=== PATIENT | female | born 1975 | race Caucasian/White ===

== ENCOUNTER 2020-07-12 07:03 | Emergency (ER) | payer OTHER, SELFPAY ==
[2020-07-12 07:12] VITALS: BP 184/103; PULSE 99; RESP 20; TEMP 36.8; O2SAT 98; BMI 48.7
[2020-07-12 07:20] VITALS: BP 148/82; PULSE 82; RESP 16; O2SAT 98
--- NOTE | 2020-07-12 07:21 | ED.EXTPRO ---
HPI - Extremity Problem General Chief complaint: Extremity Problem,Nontraumatic Stated complaint: left leg vein bleeding Time Seen by Provider: 07/12/20 07:10 Source: patient Mode of arrival: Ambulatory Limitations: no limitations History of Present Illness HPI Narrative: Patient here for small bleed to varicose veins left distal anterior leg. Bleeding control at this time. Patient was in the shower. Picked at a scab and it blood. Pressure applied. Now has resolved. Patient is not not on any blood thinners. No history of liver disease. No history anemia. No problems with bleeding in the past. No recent illness. No fever chills cough cold congestion. No injury to the leg. Related Data Home Medications Medication Instructions Recorded Confirmed thyroid (pork) 32.5 mg tablet 32.5 mg PO DAILY 09/10/19 09/10/19 Allergies Allergy/AdvReac Type Severity Reaction Status Date / Time No Known Drug Allergies Allergy Verified 07/12/20 07:12 Review of Systems Review of Systems Narrative: GENERAL: Denies chills, fatigue, malaise, fever, sweats. HEENT: Denies sinus pain, ear pain, sore throat RESPIRATORY: Denies dyspnea, cough CARDIOVASCULAR: Denies chest pain, palpitations GASTROINTESTINAL: Denies nausea, vomiting, abdominal pain : Denies dysuria, frequency, hematuria MUSCULOSKELETAL: denies muscle or bony pain SKIN: Denies rash, skin lesions, complains of skin injury NEUROLOGIC: Denies weakness, numbness ROS Unobtainable: All systems reviewed & are unremarkable except as noted in HPI and below Patient History Family History Family/Other Loud snoring Sleep apnea Obesity Hypertension Depression Dementia Father Obesity Hypertension Depression Mother Loud snoring Sleep apnea Obesity Hypertension Depression Dementia Social History Smoking Status: Never smoker Smoking Status: Never smoker alcohol intake frequency: other Substance Use Type: does not use Exam Narrative Exam Narrative: GENERAL: in no distress, not toxic not dyspneic HEAD: Normocephalic. NECK: Trachea midline. CARDIOVASCULAR: Regular rate and rhythm without murmurs RESPIRATORY: Clear to auscultation. Breath sounds equal bilaterally. No wheezes, rales, or rhonchi. EXTREMITIES: No gross deformities. Examination left lower extremity. At distal anterior leg. Small very small varicose vein. Small scab overlying this vein. No active bleeding. Calf is warm soft and pink. Foot warm soft pink. Strong pedal pulse. Brisk cap refills. Light touch intact to foot and toes. NEURO: AOx4. SKIN: Warm and dry PSYCH: Not anxious, is cooperative Initial Vital Signs Initial Vital Signs: Vital Signs Temperature 98.2 F 07/12/20 07:12 Pulse Rate 99 H 07/12/20 07:12 Respiratory Rate 20 07/12/20 07:12 Blood Pressure 184/103 H 07/12/20 07:12 Pulse Oximetry 98 07/12/20 07:12 Course Course Course Narrative: No new issues during course of stay. Reevaluation(s) Reevaluation #1: Reviewed care plan with patient. Agrees with treatment plan and follow-up with family doctor. Agrees no blood work at this time. Low risk factors for coagulopathy. Vital Signs Vital signs: Vital Signs - 8 hr 07/12/20 07:12 07/12/20 07:20 Temperature 98.2 F Pulse Rate 99 H 82 Respiratory Rate 20 16 Blood Pressure 184/103 H 148/82 H Pulse Oximetry 98 98 MDM - Extremity (Nontraumatic) Differential Diagnosis Differential diagnosis: Likely other (Varicose vein) MDM Narrative Medical decision making narrative: Appropriate for discharge home. Exam reassuring. Low risk factors for any coagulopathy. No liver disease. Not on any anticoagulation. Bleeding controlled. Reviewed instructions at home to apply pressure if rebleeds and return precautions if not resolved. Discharge Plan Departure Patient Disposition: Home Clinical Impression: Bleeding from varicose vein Instructions: DI for Varicose Veins Activity Restrictions/Additional Instructions: Return if worse or if any questions or concerns. See family doctor in a week for recheck. If rebleeding occurs, applied direct pressure to the vein. If not resolved or stop bleeding in 10 minutes then returned to the emergency department. Prescriptions: No Action Nature-Throid 32.5 mg tablet 32.5 mg PO DAILY RF: 0
--- NOTE | 2020-07-12 07:25 | PC.NURSE ---
placed 2x4 gauze and loose ko-band around wound and educated pt on how to check cap refill.
== END 2020-07-12 07:27 | disposition home or self-care (01) ==
PROVIDERS: Emergency Provider Emergency Medicine
DX: I83.899 Varicose veins of unspecified lower extremity with other complications (principal)
CPT/HCPCS: 99281

== ENCOUNTER → 2021-06-12 14:16 | Outpatient (CLI) | payer OTHER, SELFPAY ==
--- NOTE | 2021-06-12 | DI.MG.S_ITS ---
BILATERAL DIGITAL SCREENING MAMMOGRAM 3D/2D WITH CAD: 06/12/2021 Comparison is made to exams dated: 04/21/2017 mammogram, 05/21/2016 mammogram, 04/23/2014 mammogram, and 05/21/2015 mammogram - outside location. There are scattered fibroglandular elements in both breasts. Current study was also evaluated with a Computer Aided Detection (CAD) system. No significant masses, calcifications, or other findings are seen in either breast. There has been no significant interval change. IMPRESSION: NEGATIVE There is no mammographic evidence of malignancy. A 1 year screening mammogram is recommended. This exam was interpreted at Station ID: [id number]. NOTE: For mammograms, a report in lay terms will be sent to the patient. Approximately 15% of breast malignancies will not be visualized mammographically. In the management of a palpable breast mass, a negative mammogram must not discourage biopsy of a clinically suspicious lesion. Electronically Signed By: Hailey franks/evelyn:06/12/2021 16:15:27 letter sent: Normal Exam ACR BI-RADS Category 1: Negative 3341F
== END ==
PROVIDERS: PCP Physician Assistant; Referring Provider Physician Assistant; Visit Provider Physician Assistant
DX: Z12.31 Encounter for screening mammogram for malignant neoplasm of breast (principal)
CPT/HCPCS: 77063; 77067

== ENCOUNTER → 2021-12-12 08:08 | Outpatient (CLI) | payer OTHER, SELFPAY ==
[2021-12-12 08:59] LABS: Add Manual Diff / Slide Review NO; Basophils Absolute Auto 100 /uL (0-100); Basophils Percent Auto 2.6 % (0-2); Eosinophils Absolute Auto 100 /uL (0-450); Eosinophils Percent Auto 2.1 % (2-4); Hematocrit 38.5 % (36-46); Hemoglobin 13.2 g/dL (12.0-16.0); Lymphocytes Absolute Auto 1100 /uL (1100-4500); Lymphocytes Percent Auto 28.6 % (25-40); Mean Corpuscular HGB Conc 34.3 % (30-36); Mean Corpuscular Hemoglobin 31.4 PG (26-34); Mean Corpuscular Volume 91.6 fL (80-100); Monocytes Absolute Auto 300 /uL (0-900); Monocytes Percent Auto 7.8 % (3-14); Neutrophils Absolute Auto 2200 /uL (1500-7000); Neutrophils Percent Auto 58.9 % (50-75); Platelet Count 190 X10^3/uL (150-400); Red Cell Distribution Width 13.6 % (11.6-14.8); White Blood Cell Count 3.7 X10^3/uL (4.5-11.0)
[2021-12-12 14:05] LABS: Alanine Aminotransferase 24 IU/L (<35); Albumin 4.2 g/dL (3.5-5.0); Albumin Globulin Ratio 1.4 (1.0-2.8); Alkaline Phosphatase 62 U/L (38-126); Aspartate Aminotransferase 20 IU/L (14-36); BUN Creatinine Ratio 27.1 (6-22); Bilirubin Total 0.8 mg/dL (0.2-1.3); Blood Urea Nitrogen 19 mg/dL (7-17); Calcium 9.7 mg/dL (8.4-10.2); Carbon Dioxide 30 mmol/L (22-32); Chloride 103 mmol/L (98-107); Cholesterol 139 mg/dL (140-199); Estimated Glomerular Filt Rate > 60 mL/min (>60); Globulin 2.9 g/dL (1.7-4.1); Glucose 90 mg/dL (70-100); HDL Cholesterol 39 mg/dL (40-60); HEMOLYSIS < 15 (0-50); LDL Cholesterol Calculated 91 mg/dL (<100); Potassium 4.3 mmol/L (3.4-5.1); Sodium 141 mmol/L (137-145); Total Protein 7.1 g/dL (6.3-8.2); Triglycerides 43 mg/dL (35-150)
[2021-12-12 14:16] LABS: Free T3, Triiodothyronine Free 4.27 pg/mL (2.77-5.27); Free T4, Direct Thyroxine 1.23 ng/dL (0.78-2.19)
[2021-12-12 14:30] LABS: Thyroid Stimulating Hormone 0.885 uIU/mL (0.47-4.68)
[2021-12-12 14:31] LABS: Ferritin 77 ng/mL (6-137)
[2021-12-12 17:39] LABS: Vitamin D 25 Hydroxy (D3) 95.7 ng/mL (30.0-100.0)
[2021-12-12 18:26] LABS: Follicle Stimulating Hormone 31.2 mIU/mL
[2021-12-12 18:42] LABS: Estradiol, Total 28.4 pg/mL
== END ==
PROVIDERS: PCP Physician Assistant; Referring Provider Naturopath; Visit Provider Naturopath
DX: Z00.00 Encounter for general adult medical examination without abnormal findings (principal); E03.9 Hypothyroidism, unspecified; N92.6 Irregular menstruation, unspecified; R53.83 Other fatigue
CPT/HCPCS: 36415; 80053; 80061; 82306; 82670; 82728; 83001; 84439; 84443; 84481; 85025

== ENCOUNTER → 2022-04-19 11:00 | Outpatient (CLI) | payer OTHER, SELFPAY ==
[2022-04-19 12:10] LABS: Add Manual Diff / Slide Review NO; Basophils Absolute Auto 100 /uL (0-100); Basophils Percent Auto 1.5 % (0-2); Eosinophils Absolute Auto 100 /uL (0-450); Eosinophils Percent Auto 2.1 % (2-4); Hematocrit 37.7 % (36-46); Lymphocytes Absolute Auto 1300 /uL (1100-4500); Lymphocytes Percent Auto 30.2 % (25-40); Mean Corpuscular HGB Conc 34.3 % (30-36); Mean Corpuscular Hemoglobin 30.8 PG (26-34); Mean Corpuscular Volume 89.8 fL (80-100); Monocytes Absolute Auto 400 /uL (0-900); Monocytes Percent Auto 8.8 % (3-14); Neutrophils Absolute Auto 2500 /uL (1500-7000); Neutrophils Percent Auto 57.4 % (50-75); Platelet Count 189 X10^3/uL (150-400); Red Cell Distribution Width 13.9 % (11.6-14.8); White Blood Cell Count 4.4 X10^3/uL (4.5-11.0)
[2022-04-19 12:30] LABS: Alanine Aminotransferase 24 IU/L (<35); Albumin 4.3 g/dL (3.5-5.0); Albumin Globulin Ratio 1.3 (1.0-2.8); Alkaline Phosphatase 62 U/L (38-126); Aspartate Aminotransferase 25 IU/L (14-36); BUN Creatinine Ratio 31.7 (6-22); Bilirubin Total 0.6 mg/dL (0.2-1.3); Blood Urea Nitrogen 19 mg/dL (7-17); Calcium 9.7 mg/dL (8.4-10.2); Carbon Dioxide 30 mmol/L (22-32); Chloride 102 mmol/L (98-107); Estimated Glomerular Filt Rate > 60 mL/min (>60); Globulin 3.3 g/dL (1.7-4.1); Glucose 87 mg/dL (70-100); HEMOLYSIS < 15 (0-50); Potassium 3.8 mmol/L (3.4-5.1); Sodium 139 mmol/L (137-145); Total Protein 7.6 g/dL (6.3-8.2)
[2022-04-19 13:00] LABS: Estradiol, Total 56.7 pg/mL
[2022-04-19 15:49] LABS: Follicle Stimulating Hormone 28.7 mIU/mL
== END ==
PROVIDERS: PCP Naturopath; Referring Provider Naturopath; Visit Provider Naturopath
DX: N95.9 Unspecified menopausal and perimenopausal disorder (principal); R53.83 Other fatigue
CPT/HCPCS: 36415; 80053; 82670; 83001; 85025

== ENCOUNTER → 2022-06-21 13:16 | Outpatient (CLI) | payer OTHER, SELFPAY ==
--- NOTE | 2022-06-21 | DI.MG.S_ITS ---
BILATERAL DIGITAL SCREENING MAMMOGRAM 3D/2D WITH CAD: 06/21/2022 CLINICAL: Routine screening. Comparison is made to exams dated: 06/12/2021 mammogram - [facility], 04/21/2017 mammogram, and 05/21/2016 mammogram - outside location. There are scattered areas of fibroglandular density in both breasts (category b / 25%-50% glandular tissue). Current study was also evaluated with a Computer Aided Detection (CAD) system. There are grouped fine calcifications in the left breast at 12 o'clock middle depth. These are increased in number. No other significant masses, calcifications, or other findings are seen in either breast. IMPRESSION: INCOMPLETE: NEEDS ADDITIONAL IMAGING EVALUATION The grouped fine calcifications in the left breast are indeterminate. Additional views are recommended. Based on the Tyrer Cuzick model (a risk assessment model) the patient's lifetime risk is 11.6% and her 10 year risk is 2.6%. According to the ACR, ACS, and NCCN guidelines, an annual breast MRI exam along with mammogram is recommended if the patient's lifetime risk is 20% or greater. This exam was interpreted at Station ID: [id number]. NOTE: For mammograms, a report in lay terms will be sent to the patient. Approximately 15% of breast malignancies will not be visualized mammographically. In the management of a palpable breast mass, a negative mammogram must not discourage biopsy of a clinically suspicious lesion. Electronically Signed By: Ilia Bess M.D. [facility] [place]/:06/21/2022 17:13:41 letter sent: Additional Imaging Needed ACR BI-RADS Category 0: Incomplete 3340F
== END ==
PROVIDERS: PCP Naturopath; Referring Provider Naturopath; Visit Provider Naturopath
DX: Z12.31 Encounter for screening mammogram for malignant neoplasm of breast (principal)
CPT/HCPCS: 77063; 77067

== ENCOUNTER → 2022-07-05 10:17 | Outpatient (CLI) | payer OTHER, SELFPAY ==
--- NOTE | 2022-07-05 | DI.MG.S_ITS ---
UNILATERAL LEFT DIGITAL DIAGNOSTIC MAMMOGRAM 3D/2D WITH ADDITIONAL VIEWS: 07/05/2022 CLINICAL: Additional evaluation requested from prior study. Comparison is made to exams dated: 06/21/2022 mammogram, 06/12/2021 mammogram - [facility], and 04/21/2017 mammogram - outside location. There are scattered areas of fibroglandular density in the left breast (category b / 25%-50% glandular tissue). There are grouped fine calcifications in the left breast at 12 o'clock posterior depth. These are new when compared wuth prior studies. No other significant masses or calcifications are seen in the breast. IMPRESSION: SUSPICIOUS OF MALIGNANCY The grouped fine calcifications in the left breast are at a low suspicion for malignancy. A stereotactic biopsy is recommended. Based on the Tyrer Cuzick model (a risk assessment model) the patient's lifetime risk is 11.6% and her 10 year risk is 2.6%. According to the ACR, ACS, and NCCN guidelines, an annual breast MRI exam along with mammogram is recommended if the patient's lifetime risk is 20% or greater. This exam was interpreted at Station ID: [id number]. NOTE: For mammograms, a report in lay terms will be sent to the patient. Approximately 15% of breast malignancies will not be visualized mammographically. In the management of a palpable breast mass, a negative mammogram must not discourage biopsy of a clinically suspicious lesion. SUMMARY: This was discussed with the patient by the radiologist at the time of the exam. Electronically Signed By: Hailey Baker M.D. lk/:07/05/2022 11:02:43 letter sent: Biopsy Required ACR BI-RADS Category 4a: Suspicious abnormality - low suspicion for malignancy 3344F
== END ==
PROVIDERS: PCP Naturopath; Referring Provider Naturopath; Visit Provider Naturopath
DX: N63.20 Unspecified lump in the left breast, unspecified quadrant (principal)
CPT/HCPCS: 77065; G0279

== ENCOUNTER → 2022-07-22 11:44 | Day surgery (SDC) | payer OTHER, SELFPAY ==
[2022-07-22 12:17] VITALS: BP 140/80; PULSE 65; RESP 17; TEMP 36.4; O2SAT 100; BMI 27.6
--- NOTE | 2022-07-22 12:25 | P.HP_ITS ---
History of Present Illness History of Present Illness Date Patient Seen: 07/22/22 Time Patient Seen: 12:25 Chief complaint: Screening Colonoscopy Narrative: Lani is a 47-year-old woman who is here for a screening colonoscopy. She has never had one before. No family history of colon cancer. She is in good health. PFSH Family History Family/Other Loud snoring Sleep apnea Obesity Hypertension Depression Dementia Father Obesity Hypertension Depression Mother Loud snoring Sleep apnea Obesity Hypertension Depression Dementia Social History Smoking Status: Never smoker Meds Home Medications and Allergies Home Medications Medication Instructions Recorded Confirmed Type Fish Oil 2 tab PO DAILY 07/22/22 07/22/22 History Multi-Vitamin 1 tab PO DAILY 07/22/22 07/22/22 History Probiotic 1 tab PO DAILY 07/22/22 07/22/22 History Vitamin C 500 mg PO DAILY 07/22/22 07/22/22 History Vitamin D3 4,000 PO DAILY 07/22/22 History calcium citrate 150 mg PO DAILY 07/22/22 07/22/22 History digestive enzymes 3 tab PO DAILY 07/22/22 07/22/22 History iron bis glyc,ps complex-vit C 75 mg PO PRN PRN prn 07/22/22 07/22/22 History magnesium 650 mg PO DAILY 07/22/22 07/22/22 History thyroid (pork) 30 mg tablet 30 mg PO DAILY 07/22/22 07/22/22 History ([place] Thyroid) vitamin B complex 1 tab PO DAILY 07/22/22 07/22/22 History Allergies Allergy/AdvReac Type Severity Reaction Status Date / Time No Known Drug Allergies Allergy Verified 07/22/22 11:56 Exam Const General: healthy appearing Resp Effort & Inspection: normal respiratory effort Assessment & Plan Assessment and plan (1) Colon cancer screening: Status: Acute Plan We reviewed the risks and benefits of colonoscopy and she would like to proceed.
[2022-07-22] MEDS: LACTATED RINGERS 1,000 ML 120 ML IV (12:29)
[2022-07-22 13:00] VITALS: BP 115/73; PULSE 72; RESP 17; TEMP 36.6; O2SAT 98
--- NOTE | 2022-07-22 13:03 | P.OP.COLON_ITS ---
Operative Date/Time/Diagnoses Date of procedure: 07/22/22 Time of procedure: 13:03 Pre-op diagnosis: Colon cancer screening Post-op diagnosis: same Procedure & Clinicians Study performed: Colonoscopy Same procedure as scheduled: Yes Surgeon: Ovidio Hargrove Procedure Notes Procedure in detail: Surgeon: Ovidio Hargrove MD Anesthesia: Pam Cameron AUTOMATION ARCHITECT Procedure: The patient was brought to the endoscopy suite, placed in left lateral decubitus position. The patient was connected to monitoring devices. A time-out was performed. Sedation was administered. Once the patient was adequately sedated, a digital rectal exam was performed and was normal. The scope was then inserted and advanced to the cecum where the appendiceal orifice was identified and photographed. The scope was then slowly withdrawn over greater than 6 minutes. The mucosa was thoroughly inspected. No abnormalities were found throughout the colon. The scope was retroflexed in the rectum. No abnormalities were seen in the rectum. The scope was straightened and removed. The patient was awakened and brought to recovery. Scope withdrawal time: 9 minutes Sedation time: 16 minutes EBL: 0 Findings: Normal colon Post-procedure Recommendations: Colonoscopy in 10 years Disposition: PACU
[2022-07-22 13:06] VITALS: BP 114/70; PULSE 70; RESP 18; O2SAT 97
== END | disposition home or self-care (01) ==
PROVIDERS: PCP Naturopath; Referring Provider Surgery; Visit Provider Surgery
PROC: 0DJD8ZZ Inspection of Lower Intestinal Tract, Via Natural or Artificial Opening Endoscopic (ICD-10-PCS; CPT 45378; principal; 2022-07-22 12:45)
DX: Z12.11 Encounter for screening for malignant neoplasm of colon (principal)
CPT/HCPCS: 45378

== ENCOUNTER → 2022-10-13 07:42 | Outpatient (CLI) | payer OTHER, SELFPAY ==
[2022-10-13 09:04] LABS: Add Manual Diff / Slide Review NO; Basophils Absolute Auto 100 /uL (0-100); Basophils Percent Auto 1.9 % (0-2); Eosinophils Absolute Auto 100 /uL (0-450); Eosinophils Percent Auto 4.4 % (2-4); Hemoglobin 12.4 g/dL (12.0-16.0); Lymphocytes Absolute Auto 1100 /uL (1100-4500); Lymphocytes Percent Auto 34.3 % (25-40); Mean Corpuscular HGB Conc 34.4 % (30-36); Mean Corpuscular Hemoglobin 31.3 PG (26-34); Mean Corpuscular Volume 91.1 fL (80-100); Monocytes Absolute Auto 200 /uL (0-900); Monocytes Percent Auto 7.5 % (3-14); Neutrophils Absolute Auto 1700 /uL (1500-7000); Neutrophils Percent Auto 51.9 % (50-75); Platelet Count 160 X10^3/uL (150-400); Red Blood Cell Count 3.96 X10^6/uL (4.0-5.2); Red Cell Distribution Width 13.2 % (11.6-14.8); White Blood Cell Count 3.3 X10^3/uL (4.5-11.0)
[2022-10-13 09:22] LABS: HEMOLYSIS < 15 (0-50); Iron 56 ug/dL (37-170)
[2022-10-13 09:28] LABS: Alanine Aminotransferase 36 IU/L (<35); Albumin 3.9 g/dL (3.5-5.0); Albumin Globulin Ratio 1.4 (1.0-2.8); Alkaline Phosphatase 48 U/L (38-126); Aspartate Aminotransferase 26 IU/L (14-36); BUN Creatinine Ratio 32.8 (6-22); Bilirubin Total 0.6 mg/dL (0.2-1.3); Blood Urea Nitrogen 21 mg/dL (7-17); Calcium 9.5 mg/dL (8.4-10.2); Carbon Dioxide 28 mmol/L (22-32); Chloride 104 mmol/L (98-107); Cholesterol 124 mg/dL (140-199); Estimated Glomerular Filt Rate > 60 mL/min (>60); Globulin 2.7 g/dL (1.7-4.1); Glucose 84 mg/dL (70-100); HDL Cholesterol 47 mg/dL (40-60); HEMOLYSIS < 15 (0-50); LDL Cholesterol Calculated 71 mg/dL (<100); Potassium 4.2 mmol/L (3.4-5.1); Sodium 138 mmol/L (137-145); Total Protein 6.6 g/dL (6.3-8.2); Triglycerides 29 mg/dL (35-150)
[2022-10-13 09:34] LABS: Percent Iron Saturation 18 % (15-50); Total Iron Binding Capacity 311 ug/dL (265-497); Transferrin 202 mg/dL (206-381)
[2022-10-13 09:41] LABS: Free T3, Triiodothyronine Free 4.46 pg/mL (2.77-5.27); Free T4, Direct Thyroxine 1.02 ng/dL (0.78-2.19)
[2022-10-13 10:00] LABS: Ferritin 24 ng/mL (6-137)
[2022-10-13 10:31] LABS: Folate > 20.0 ng/mL (2.76-20.0); Vitamin B12 > 1000 pg/mL (239-931)
[2022-10-14 09:16] LABS: Homocysteine 7.7 umol/L (0.0-14.5)
== END ==
PROVIDERS: PCP Naturopath; Referring Provider Naturopath; Visit Provider Naturopath
DX: Z00.00 Encounter for general adult medical examination without abnormal findings (principal); N92.6 Irregular menstruation, unspecified; D64.9 Anemia, unspecified; E03.9 Hypothyroidism, unspecified
CPT/HCPCS: 36415; 80053; 80061; 82607; 82728; 82746; 83090; 83540; 83550; 84439; 84443; 84481; 85025

== ENCOUNTER → 2022-11-04 10:53 | Outpatient (CLI) | payer OTHER, SELFPAY ==
[2022-11-04 11:34] LABS: Add Manual Diff / Slide Review NO; Basophils Absolute Auto 100 /uL (0-100); Basophils Percent Auto 3.4 % (0-2); Eosinophils Absolute Auto 100 /uL (0-450); Eosinophils Percent Auto 3.5 % (2-4); Hematocrit 36.3 % (36-46); Hemoglobin 12.2 g/dL (12.0-16.0); Lymphocytes Absolute Auto 1200 /uL (1100-4500); Lymphocytes Percent Auto 31.5 % (25-40); Mean Corpuscular HGB Conc 33.7 % (30-36); Mean Corpuscular Volume 92.1 fL (80-100); Monocytes Absolute Auto 300 /uL (0-900); Monocytes Percent Auto 7.6 % (3-14); Neutrophils Absolute Auto 2000 /uL (1500-7000); Platelet Count 155 X10^3/uL (150-400); Red Blood Cell Count 3.94 X10^6/uL (4.0-5.2); Red Cell Distribution Width 13.3 % (11.6-14.8); White Blood Cell Count 3.7 X10^3/uL (4.5-11.0)
[2022-11-04 11:56] LABS: Alanine Aminotransferase 39 IU/L (<35); Albumin 3.9 g/dL (3.5-5.0); Albumin Globulin Ratio 1.3 (1.0-2.8); Alkaline Phosphatase 50 U/L (38-126); Aspartate Aminotransferase 27 IU/L (14-36); BUN Creatinine Ratio 33.3 (6-22); Bilirubin Total 0.6 mg/dL (0.2-1.3); Blood Urea Nitrogen 20 mg/dL (7-17); Calcium 9.8 mg/dL (8.4-10.2); Carbon Dioxide 29 mmol/L (22-32); Chloride 104 mmol/L (98-107); Estimated Glomerular Filt Rate > 60 mL/min (>60); Globulin 2.9 g/dL (1.7-4.1); Glucose 95 mg/dL (70-100); HEMOLYSIS < 15 (0-50); Potassium 4.3 mmol/L (3.4-5.1); Sodium 138 mmol/L (137-145); Total Protein 6.8 g/dL (6.3-8.2)
[2022-11-04 16:04] LABS: Creatinine Urine Random 32.8 mg/dL
[2022-11-04 16:11] LABS: Microalbumin Urine Random < 0.6 mg/dL (0-1.6)
== END ==
PROVIDERS: PCP Naturopath; Referring Provider Naturopath; Visit Provider Naturopath
DX: Z00.00 Encounter for general adult medical examination without abnormal findings (principal); R79.9 Abnormal finding of blood chemistry, unspecified; D72.818 Other decreased white blood cell count; D64.9 Anemia, unspecified; N92.6 Irregular menstruation, unspecified; E03.9 Hypothyroidism, unspecified
CPT/HCPCS: 36415; 80053; 82043; 82570; 85025

== ENCOUNTER → 2023-01-03 09:12 | Outpatient (CLI) | payer OTHER, SELFPAY ==
[2023-01-03 11:47] LABS: Estradiol, Total 23.2 pg/mL
== END ==
PROVIDERS: PCP Naturopath; Referring Provider Naturopath; Visit Provider Naturopath
DX: N95.1 Menopausal and female climacteric states (principal)
CPT/HCPCS: 36415; 82670

== ENCOUNTER → 2023-03-31 10:25 | Outpatient (CLI) | payer OTHER, SELFPAY | LOC: LAB 10:28 | PROVIDERS: PCP Naturopath; Referring Provider Obstetrics & Gynecology; Visit Provider Obstetrics & Gynecology | DX: N95.0 Postmenopausal bleeding (principal) | CPT/HCPCS: 36415; 84144 ==

== ENCOUNTER → 2023-05-25 12:28 | Outpatient (CLI) | payer OTHER, SELFPAY ==
[2023-05-25 12:55] LABS: Add Manual Diff / Slide Review NO; Basophils Absolute Auto 100 /uL (0-100); Basophils Percent Auto 1.2 % (0-2); Eosinophils Absolute Auto 200 /uL (0-450); Eosinophils Percent Auto 4.2 % (2-4); Hemoglobin 13.2 g/dL (12.0-16.0); Lymphocytes Absolute Auto 1300 /uL (1100-4500); Lymphocytes Percent Auto 26.4 % (25-40); Mean Corpuscular HGB Conc 33.8 % (30-36); Mean Corpuscular Hemoglobin 31.1 PG (26-34); Mean Corpuscular Volume 91.9 fL (80-100); Monocytes Absolute Auto 300 /uL (0-900); Monocytes Percent Auto 7.2 % (3-14); Neutrophils Absolute Auto 2900 /uL (1500-7000); Platelet Count 172 X10^3/uL (150-400); Red Blood Cell Count 4.25 X10^6/uL (4.0-5.2); White Blood Cell Count 4.8 X10^3/uL (4.5-11.0)
[2023-05-25 13:30] LABS: HEMOLYSIS < 15 (0-50); Iron 62 ug/dL (37-170)
[2023-05-25 13:41] LABS: Percent Iron Saturation 20 % (15-50); Total Iron Binding Capacity 303 ug/dL (265-497); Transferrin 232 mg/dL (206-381)
[2023-05-25 13:47] LABS: Progesterone, Total 0.62 ng/mL
[2023-05-25 14:03] LABS: Estradiol, Total 43.3 pg/mL
[2023-05-26 12:36] LABS: Ferritin 22 ng/mL (11-264)
== END ==
LOC: LAB 12:29
PROVIDERS: PCP Naturopath; Referring Provider Naturopath; Visit Provider Naturopath
DX: N95.1 Menopausal and female climacteric states (principal); D64.9 Anemia, unspecified; R79.9 Abnormal finding of blood chemistry, unspecified; N92.6 Irregular menstruation, unspecified; E03.9 Hypothyroidism, unspecified; Z00.00 Encounter for general adult medical examination without abnormal findings
CPT/HCPCS: 36415; 82670; 82728; 83540; 83550; 84144; 85025

== ENCOUNTER → 2023-06-29 08:28 | Outpatient (CLI) | payer OTHER, SELFPAY ==
--- NOTE | 2023-06-29 08:29 | DI.MG.S_ITS ---
BILATERAL DIGITAL SCREENING MAMMOGRAM 3D/2D WITH CAD: 06/29/2023 CLINICAL: Routine screening. Comparison is made to exams dated: 06/21/2022 mammogram and 06/12/2021 mammogram - [facility]. There are scattered areas of fibroglandular density in both breasts (category b / 25%-50% glandular tissue). Current study was also evaluated with a Computer Aided Detection (CAD) system. There is a biopsy clip in the left breast. No significant masses, calcifications, or other findings are seen in either breast. There has been no significant interval change. IMPRESSION: BENIGN There is no mammographic evidence of malignancy. A 1 year screening mammogram is recommended. Based on the Tyrer Cuzick model (a risk assessment model) the patient's lifetime risk is 11.5% and her 10 year risk is 2.7%. According to the ACR, ACS, and NCCN guidelines, an annual breast MRI exam along with mammogram is recommended if the patient's lifetime risk is 20% or greater. This exam was interpreted at Station ID: [id number]. NOTE: For mammograms, a report in lay terms will be sent to the patient. Approximately 15% of breast malignancies will not be visualized mammographically. In the management of a palpable breast mass, a negative mammogram must not discourage biopsy of a clinically suspicious lesion. Electronically Signed By: Silvia Tirado M.D., Ph.D. indu/evelyn:06/29/2023 12:56:16 letter sent: Normal Exam ACR BI-RADS Category 2: Benign Finding(s) 3342F
== END ==
PROVIDERS: PCP Naturopath; Referring Provider Naturopath; Visit Provider Naturopath
DX: Z12.31 Encounter for screening mammogram for malignant neoplasm of breast (principal); R92.323 Mammographic fibroglandular density, bilateral breasts
CPT/HCPCS: 77063; 77067

== ENCOUNTER → 2023-09-23 09:03 | Outpatient (CLI) | payer OTHER, SELFPAY ==
[2023-09-23 10:28] LABS: Hemoglobin A1C% w Est Avg Glu 4.8 % (4.0-6.0)
[2023-09-23 10:32] LABS: HEMOLYSIS < 15 (0-50); Iron 101 ug/dL (37-170)
[2023-09-23 10:42] LABS: Alanine Aminotransferase 24 IU/L (<35); Albumin 4.1 g/dL (3.5-5.0); Albumin Globulin Ratio 1.5 (1.0-2.8); Alkaline Phosphatase 49 U/L (38-126); Aspartate Aminotransferase 26 IU/L (14-36); BUN Creatinine Ratio 29.3 (6-22); Bilirubin Total 0.8 mg/dL (0.2-1.3); Blood Urea Nitrogen 22 mg/dL (7-17); C-Reactive Protein Quant < 0.5 mg/dL (<1.0); Calcium 9.8 mg/dL (8.4-10.2); Carbon Dioxide 29 mmol/L (22-32); Chloride 106 mmol/L (98-107); Estimated Glomerular Filt Rate > 60 mL/min (>60); Globulin 2.7 g/dL (1.7-4.1); Glucose 86 mg/dL (70-100); HEMOLYSIS < 15 (0-50); Potassium 4.3 mmol/L (3.4-5.1); Sodium 139 mmol/L (137-145); Total Protein 6.8 g/dL (6.3-8.2)
[2023-09-23 10:44] LABS: Percent Iron Saturation 35 % (15-50); Total Iron Binding Capacity 292 ug/dL (265-497); Transferrin 211 mg/dL (206-381)
[2023-09-23 10:51] LABS: Free T3, Triiodothyronine Free 3.94 pg/mL (2.77-5.27); Free T4, Direct Thyroxine 1.17 ng/dL (0.78-2.19)
[2023-09-23 11:05] LABS: Thyroid Stimulating Hormone 0.815 uIU/mL (0.47-4.68)
[2023-09-23 11:07] LABS: Ferritin 49 ng/mL (11-264)
[2023-09-23 12:07] LABS: Erythrocyte Sedimentation Rate 13 MM/HR (0-20)
== END ==
PROVIDERS: PCP Naturopath; Referring Provider Naturopath; Visit Provider Naturopath
DX: Z00.00 Encounter for general adult medical examination without abnormal findings (principal); R79.9 Abnormal finding of blood chemistry, unspecified; E03.9 Hypothyroidism, unspecified; R53.83 Other fatigue; D64.9 Anemia, unspecified; N95.1 Menopausal and female climacteric states; N92.6 Irregular menstruation, unspecified
CPT/HCPCS: 36415; 80053; 82728; 83036; 83540; 83550; 84439; 84443; 84481; 85651; 86140

== ENCOUNTER → 2024-07-04 07:24 | Outpatient (CLI) | payer OTHER, SELFPAY ==
[2024-07-04 08:12] LABS: HEMOLYSIS < 15 (0-50); Iron 76 ug/dL (37-170)
[2024-07-04 08:18] LABS: Alanine Aminotransferase 41 IU/L (<35); Albumin 4.3 g/dL (3.5-5.0); Albumin Globulin Ratio 1.7 (1.0-2.8); Alkaline Phosphatase 54 U/L (38-126); Aspartate Aminotransferase 32 IU/L (14-36); BUN Creatinine Ratio 37.9 (6-22); Bilirubin Total 0.7 mg/dL (0.2-1.3); Blood Urea Nitrogen 25 mg/dL (7-17); C-Reactive Protein Quant < 0.5 mg/dL (<1.0); Calcium 9.6 mg/dL (8.4-10.2); Carbon Dioxide 29 mmol/L (22-32); Chloride 104 mmol/L (98-107); Estimated Glomerular Filt Rate > 60 mL/min (>60); Globulin 2.6 g/dL (1.7-4.1); Glucose 91 mg/dL (70-99); HEMOLYSIS < 15 (0-50); Potassium 4.1 mmol/L (3.4-5.1); Sodium 139 mmol/L (137-145); Total Protein 6.9 g/dL (6.3-8.2)
[2024-07-04 08:25] LABS: Percent Iron Saturation 24 % (15-50); Total Iron Binding Capacity 311 ug/dL (265-497); Transferrin 238 mg/dL (206-381)
[2024-07-04 08:32] LABS: Free T3, Triiodothyronine Free 3.94 pg/mL (2.77-5.27); Free T4, Direct Thyroxine 1.02 ng/dL (0.78-2.19)
[2024-07-04 08:44] LABS: Cortisol AM (Before 10AM) 8.85 ug/dL (4.46-22.7)
[2024-07-04 08:45] LABS: Thyroid Stimulating Hormone 1.35 uIU/mL (0.47-4.68)
[2024-07-04 08:46] LABS: Estradiol, Total 45.6 pg/mL
[2024-07-04 08:47] LABS: Ferritin 24 ng/mL (11-264)
[2024-07-04 09:03] LABS: Add Manual Diff / Slide Review NO; Basophils Absolute Auto 100 /uL (0-100); Basophils Percent Auto 2.2 % (0-2); Eosinophils Absolute Auto 100 /uL (0-450); Eosinophils Percent Auto 4.8 % (2-4); Hematocrit 39.8 % (36-46); Hemoglobin 13.5 g/dL (12.0-16.0); Lymphocytes Absolute Auto 1100 /uL (1100-4500); Lymphocytes Percent Auto 36.5 % (25-40); Mean Corpuscular Hemoglobin 31.6 PG (26-34); Mean Corpuscular Volume 92.8 fL (80-100); Monocytes Absolute Auto 200 /uL (0-900); Monocytes Percent Auto 7.7 % (3-14); Neutrophils Absolute Auto 1400 /uL (1500-7000); Neutrophils Percent Auto 48.8 % (50-75); Platelet Count 158 X10^3/uL (150-400); Red Blood Cell Count 4.29 X10^6/uL (4.0-5.2)
[2024-07-04 09:10] LABS: Hemoglobin A1C% w Est Avg Glu 4.7 % (4.0-6.0)
[2024-07-04 09:21] LABS: Folate > 20.0 ng/mL (2.76-20.0); Vitamin B12 > 1000 pg/mL (239-931)
--- NOTE | 2024-07-04 15:47 | DI.MG.S_ITS ---
MM screening mammo BI: 07/04/2024. BI-RADS: 2 CLINICAL: 49-year old female for bilateral screening mammogram. Tyrer-Cuzick lifetime risk of 10.7%. No personal or first-degree family history of breast cancer. The patient had a prior left breast biopsy. PRIOR EXAMS 06/29/2023, 07/29/2022, 07/05/2022, 06/21/2022, 06/12/2021. MAMMOGRAPHY TECHNIQUE: 2D and 3D (tomosynthesis) digital mammographic views obtained, with additional images as needed for full coverage. Current study was also evaluated with a Computer Aided Detection (CAD) system. DENSITY B. There are scattered areas of fibroglandular density. MAMMOGRAPHY FINDINGS Right: No suspicious mass, asymmetry, microcalcification, or other abnormality seen. Left: Biopsy marker present on the left. There are no suspicious masses, calcifications, or other findings in the breast. IMPRESSION: Right * No evidence of malignancy. Left * No evidence of malignancy with benign findings. RECOMMENDATIONS Bilateral * Annual screening mammography. OVERALL ASSESSMENT CATEGORY BI-RADS-2: Benign. The [employer] recommends annual screening mammography beginning at age 40 for women with average risk of breast cancer. ELECTRONICALLY SIGNED: Silvia Tirado M.D. on 07/05/2024 at 07:03:14 AM PT Interpreting Station ID: [id number]
[2024-07-05 06:06] LABS: Insulin Level Total 5.1 uIU/mL (2.6-24.9)
[2024-07-12 23:07] LABS: Vitamin A 39.1 ug/dL (20.1-62.0)
== END ==
PROVIDERS: PCP Naturopath; Referring Provider Naturopath; Visit Provider Naturopath
DX: Z12.31 Encounter for screening mammogram for malignant neoplasm of breast (principal); E03.9 Hypothyroidism, unspecified; N95.9 Unspecified menopausal and perimenopausal disorder; R53.83 Other fatigue; D64.9 Anemia, unspecified; F32.A Depression, unspecified
CPT/HCPCS: 36415; 77063; 77067; 80053; 82306; 82533; 82607; 82670; 82728; 82746; 83036; 83525; 83540; 83550; 84439; 84443; 84481; 84590; 85025; 86140

== ENCOUNTER → 2024-07-23 09:59 | Outpatient (CLI) | payer OTHER, SELFPAY ==
--- NOTE | 2024-07-23 10:02 | DI.US.S_ITS ---
PROCEDURE: US VENOUS INSUFFICIENCY BILAT INDICATIONS: VENOUS STASIS BILAT EXTREMITIES TECHNIQUE: Real time scanning was performed of the lower extremity venous system, with imaging documentation, as well as Color and pulse Doppler interrogation. COMPARISON: None. FINDINGS: RIGHT LOWER EXTREMITY: The deep veins are normally compressible, and free of intraluminal thrombus. Color and pulse Doppler demonstrate normal intravascular flow. There is normal augmentation with distal compression maneuver. Reflux in the popliteal vein and common femoral vein. Greater saphenous vein (GSV): Normally 4 mm or less in diameter, with any reflux less than 0.5 seconds. Saphenofemoral junction (SFJ): 9 mm. Reflux at 2.1 seconds. Proximal GSV: 8 mm. Reflux at 2.8 seconds. Mid GSV: Not present Distal GSV: Not present Calf GSV: Not present Anterior accessory GSV (AAGSV): Anatomic variant not present across anterior thigh. Small saphenous vein (SSV): Posterior calf, draining into popliteal vein. Posterior calf: 2 mm. Reflux present. Vein of Giacomini (posterior thigh connection between GSV and SSV): Anatomic variant not seen. Classified Advertising Manager veins: None. Multiple varicosities are present, status post closure. LEFT LOWER EXTREMITY: The deep veins are normally compressible, and free of intraluminal thrombus. Color and pulse Doppler demonstrate normal intravascular flow. There is normal augmentation with distal compression maneuver. Reflux in the left common femoral vein. Greater saphenous vein (GSV): Normally 4 mm or less in diameter, with any reflux less than 0.5 seconds. Saphenofemoral junction (SFJ): 10 mm. Reflux at 2.6 seconds. Proximal GSV: 9 mm. Reflux at 2.6 seconds. Mid GSV: Not visualized Distal GSV: Not visualized Calf GSV: Not visualized Anterior accessory GSV (AAGSV): Anatomic variant not present across anterior thigh. Small saphenous vein (SSV): Posterior calf, draining into popliteal vein. Posterior calf: Not visualized Vein of Giacomini (posterior thigh connection between GSV and SSV): Anatomic variant not seen. Classified Advertising Manager veins: None. Numerous varicosities noted, including a superficial thrombosis in the left ankle. IMPRESSION: On the right: Reflux noted in the popliteal vein and common femoral vein. Reflux in the proximal greater saphenous vein. Distal closure. Reflux in the shorter saphenous vein. Numerous varicosities are present. On the left: Reflux of the common femoral vein. Reflux in the proximal greater saphenous vein. Numerous varicosities are present, including a thrombosed left ankle varicosity. Dictated by: Des Varela M.D. on 07/27/2024 at 16:31 Approved by: Des Varela M.D. on 07/27/2024 at 16:35
== END ==
LOC: US 10:01
PROVIDERS: PCP Nurse Practitioner Family; Referring Provider Nurse Practitioner Family; Visit Provider Nurse Practitioner Family
DX: I87.2 Venous insufficiency (chronic) (peripheral) (principal); I87.8 Other specified disorders of veins
CPT/HCPCS: 93970

== ENCOUNTER → 2024-08-15 09:13 | Outpatient (CLI) | payer OTHER, SELFPAY ==
--- NOTE | 2024-08-15 09:14 | DI.US.S_ITS ---
PROCEDURE: US RENAL COMPLETE INDICATIONS: ABNORMAL RESULTS OF KIDNEY FUNCTION STUDY TECHNIQUE: Real-time scanning was performed of the kidneys and bladder, with image documentation. COMPARISON: None. FINDINGS: Kidneys: Right kidney measures 11.7 cm long; left kidney measures 11.1 cm long. Right renal cortical thickness is 1.3 cm; left renal cortical thickness is 1.8 cm. Renal cortical echotexture is normal. No hydronephrosis or nephrolithiasis. No suspicious solid mass lesions. Bladder: Pre-void bladder volume is 697 mL. Post-void residual is 6 mL. Pre- void images demonstrate no intraluminal masses or stones. On pre-void images, only the left ureteral jets are noted with color Doppler interrogation. (Of note, ureteral jets may not be detectable in up to 25% of cases due to insufficient differences in specific gravity between ureteral and bladder urine). Miscellaneous: No free pelvic fluid. IMPRESSION: No obstruction. No renal masses. Dictated by: Dorcas Knapp M.D. on 08/15/2024 at 17:22 Approved by: Dorcas Knapp M.D. on 08/15/2024 at 17:25
== END ==
LOC: US 09:13
PROVIDERS: PCP Nurse Practitioner Family; Referring Provider Naturopath; Visit Provider Naturopath
DX: R94.4 Abnormal results of kidney function studies (principal); R53.83 Other fatigue
CPT/HCPCS: 76770

== ENCOUNTER → 2024-08-30 07:41 | Outpatient (CLI) | payer OTHER, SELFPAY ==
[2024-08-30 08:40] LABS: Add Manual Diff / Slide Review NO; Hematocrit 39.0 % (36-46); Hemoglobin 13.2 g/dL (12.0-16.0); Lymphocytes Absolute Auto 1200 /uL (1100-4500); Mean Corpuscular HGB Conc 33.8 % (30-36); Mean Corpuscular Hemoglobin 31.3 PG (26-34); Mean Corpuscular Volume 92.8 fL (80-100); Platelet Count 159 X10^3/uL (150-400)
[2024-08-30 08:58] LABS: Alanine Aminotransferase 38 IU/L (<35); Albumin 4.1 g/dL (3.5-5.0); Albumin Globulin Ratio 1.5 (1.0-2.8); Alkaline Phosphatase 52 U/L (38-126); Blood Urea Nitrogen 24 mg/dL (7-17); Calcium 9.4 mg/dL (8.4-10.2); Carbon Dioxide 29 mmol/L (22-32); Chloride 104 mmol/L (98-107); Estimated Glomerular Filt Rate > 60 mL/min (>60); Globulin 2.7 g/dL (1.7-4.1); Glucose 87 mg/dL (70-99); HEMOLYSIS < 15 (0-50); Potassium 4.4 mmol/L (3.4-5.1); Sodium 138 mmol/L (137-145); Total Protein 6.8 g/dL (6.3-8.2)
[2024-08-31 00:36] LABS: HSV 1 IGG Reactive (Non Reactive); HSV 2 IGG Non Reactive (Non Reactive)
[2024-08-31 09:09] LABS: EBV Early Antigen AB,IgG <9.0 U/mL (0.0-8.9)
[2024-09-01 04:10] LABS: ANA Screen, IFA Negative (.)
== END ==
PROVIDERS: PCP Nurse Practitioner Family; Referring Provider Naturopath; Visit Provider Naturopath
DX: D72.9 Disorder of white blood cells, unspecified (principal); E03.9 Hypothyroidism, unspecified; R53.83 Other fatigue; R94.4 Abnormal results of kidney function studies
CPT/HCPCS: 36415; 80053; 85025; 86038; 86644; 86645; 86663; 86664; 86665; 86695; 86696; 86747

== ENCOUNTER → 2024-11-09 09:37 | Outpatient (CLI) | payer OTHER, SELFPAY ==
[2024-11-09 10:46] LABS: Add Manual Diff / Slide Review NO; Hematocrit 38.5 % (36-46); Hemoglobin 13.3 g/dL (12.0-16.0); Lymphocytes Absolute Auto 1400 /uL (1100-4500); Mean Corpuscular HGB Conc 34.5 % (30-36); Mean Corpuscular Hemoglobin 31.6 PG (26-34); Mean Corpuscular Volume 91.7 fL (80-100); Platelet Count 176 X10^3/uL (150-400)
[2024-11-09 11:05] LABS: Alanine Aminotransferase 51 IU/L (<35); Albumin 4.0 g/dL (3.5-5.0); Albumin Globulin Ratio 1.4 (1.0-2.8); Alkaline Phosphatase 49 U/L (38-126); Blood Urea Nitrogen 23 mg/dL (7-17); Calcium 9.6 mg/dL (8.4-10.2); Carbon Dioxide 31 mmol/L (22-32); Chloride 102 mmol/L (98-107); Estimated Glomerular Filt Rate > 60 mL/min (>60); Globulin 2.8 g/dL (1.7-4.1); Glucose 78 mg/dL (70-99); HEMOLYSIS < 15 (0-50); Potassium 4.4 mmol/L (3.4-5.1); Sodium 136 mmol/L (137-145); Total Protein 6.8 g/dL (6.3-8.2)
== END ==
PROVIDERS: PCP Nurse Practitioner Family; Referring Provider Naturopath; Visit Provider Naturopath
DX: D64.9 Anemia, unspecified (principal); D72.9 Disorder of white blood cells, unspecified; R94.4 Abnormal results of kidney function studies
CPT/HCPCS: 36415; 80053; 85025

== ENCOUNTER → 2024-12-21 11:58 | Outpatient (CLI) | payer OTHER, SELFPAY ==
--- NOTE | 2024-12-21 11:58 | DI.US.S_ITS ---
PROCEDURE: US PELVIC COMPLETE
== END ==
LOC: US 11:58
PROVIDERS: PCP Nurse Practitioner Family; Referring Provider Naturopath; Visit Provider Naturopath
DX: N93.9 Abnormal uterine and vaginal bleeding, unspecified (principal); D25.1 Intramural leiomyoma of uterus
CPT/HCPCS: 76856

== ENCOUNTER → 2025-01-09 09:41 | Outpatient (CLI) | payer OTHER, SELFPAY ==
[2025-01-09 10:42] LABS: Add Manual Diff / Slide Review NO; Hematocrit 38.6 % (36-46); Hemoglobin 13.2 g/dL (12.0-16.0); Lymphocytes Absolute Auto 1300 /uL (1100-4500); Mean Corpuscular HGB Conc 34.1 % (30-36); Mean Corpuscular Hemoglobin 31.2 PG (26-34); Mean Corpuscular Volume 91.5 fL (80-100); Platelet Count 181 X10^3/uL (150-400)
[2025-01-09 11:00] LABS: Alanine Aminotransferase 38 IU/L (<35); Albumin 4.2 g/dL (3.5-5.0); Albumin Globulin Ratio 1.5 (1.0-2.8); Alkaline Phosphatase 53 U/L (38-126); Blood Urea Nitrogen 26 mg/dL (7-17); Calcium 9.7 mg/dL (8.4-10.2); Carbon Dioxide 30 mmol/L (22-32); Chloride 104 mmol/L (98-107); Estimated Glomerular Filt Rate > 60 mL/min (>60); Globulin 2.8 g/dL (1.7-4.1); Glucose 93 mg/dL (70-99); HEMOLYSIS < 15 (0-50); Potassium 4.3 mmol/L (3.4-5.1); Sodium 140 mmol/L (137-145); Total Protein 7.0 g/dL (6.3-8.2)
== END ==
PROVIDERS: PCP Nurse Practitioner Family; Referring Provider Naturopath; Visit Provider Naturopath
DX: D72.9 Disorder of white blood cells, unspecified (principal); E03.9 Hypothyroidism, unspecified; R53.83 Other fatigue; R94.4 Abnormal results of kidney function studies
CPT/HCPCS: 36415; 80053; 85025